=== PATIENT | female | born 1965 ===

== ENCOUNTER 2017-06-30 05:20 | Inpatient (IN) | payer OTHER ==
[~2017-06-30 05:20] MED LIST: CLONOPIN PO
[2017-07-02] MEDS ORDERED: PANADOL EXTRA500 MG PO (13:42)
[2017-07-02] MEDS ORDERED: IBUPROFEN800 MG PO (13:42)
== END 2017-07-02 14:42 | disposition home or self-care (01) | DRG 743 ==
LOC: CIR.AMB 05:20 → OB/GYN 18:46
PROVIDERS: Obstetrics & Gynecology
PROC: 0UT97ZZ Resection of Uterus, Via Natural or Artificial Opening (ICD-10-PCS; principal; 2017-06-30 07:00)
DX: N81.2 Incomplete uterovaginal prolapse (principal)